=== PATIENT | male | born 1955 | race Caucasian/White ===

== ENCOUNTER → 2023-05-31 | Outpatient (RCR) | payer MEDICARE | LOC: SPEECH | DX: Z86.73 Personal history of transient ischemic attack (TIA), and cerebral infarction without residual deficits (principal) ==

== ENCOUNTER 2023-06-02 07:46 | Outpatient (RCR) | payer MEDICARE | END 2023-06-30 | disposition home or self-care (01) | LOC: SPEECH | DX: Z86.73 Personal history of transient ischemic attack (TIA), and cerebral infarction without residual deficits (principal) ==

== ENCOUNTER 2023-07-01 08:00 | Outpatient (RCR) | payer MEDICARE | END 2023-07-29 14:31 | disposition home or self-care (01) | LOC: SPEECH 08:00 | DX: Z86.73 Personal history of transient ischemic attack (TIA), and cerebral infarction without residual deficits (principal) ==

== ENCOUNTER 2023-07-01 08:00 | Outpatient (RCR) | payer OTHER | END 2023-07-29 14:32 | disposition home or self-care (01) | LOC: PT 08:00 | DX: I69.359 Hemiplegia and hemiparesis following cerebral infarction affecting unspecified side (principal) ==